=== PATIENT | male | born 1975 | race Caucasian/White ===

== ENCOUNTER 2016-05-08 05:35 | Emergency (ER) | payer BC ==
[~2016-05-08] VITALS: Ht 180.3 cm; Wt 123.4 kg
[2016-05-08 05:35] VITALS: BP 204/104
--- NOTE | 2016-05-08 05:42 | NUR ---
PT TAKEN TO BED 1
[2016-05-08] MEDS ORDERED: NEXIUM20 MG PO (05:48)
--- NOTE | 2016-05-08 05:49 | NUR ---
Dr. Richey evaluating patient at bedside.
--- NOTE | 2016-05-08 05:52 | NUR ---
40Y/M PATIENT PRESENTS TO ED WITH C/O CHEST PAIN X 10 HRS . PT STATES CHEST PAIN STARTED AT 1900 AFTER EATING DINNER, NO RADIATION, FEELING TIGHTNESS. DENIES N/V/D; SKIN IS PINK/WARM/DRY; AAOX4 WITH EVEN AND STEADY GAIT; LUNGS CLEAR BL; HR EVEN AND REGULAR; PT DENIES ANY FEVER, SOB, OR COUGH AT THIS TIME; PATIENT STATES PAIN OF 7/10 AT THIS TIME; VSS; PATIENT POSITIONED FOR COMFORT; HOB ELEVATED; BEDRAILS UP X2; BED DOWN. ER MD MADE AWARE OF PT STATUS.
[2016-05-08] MEDS ORDERED: ALUMINUM HYD/MAG/SIMETHICONE 30 ML, BELLADONNA/PHENOBARBITAL 10 ML, LIDOCAINE VISCOUS 2... PO ONE (05:55)
--- NOTE | 2016-05-08 06:08 | NUR ---
PHLEB AT BEDSIDE FOR LAB DRAWS
--- NOTE | 2016-05-08 07:02 | NUR ---
Patient discharged with v/s stable. Written and verbal after care instructions given and explained. Patient alert, oriented and verbalized understanding of instructions. Ambulatory with steady gait. All questions addressed prior to discharge. ID band removed. Patient advised to follow up with PMD. Rx of MYLANTA 200 [id number], OMEPRAZOLE 20 MG given. Patient educated on indication of medication including possible reaction and side effects. Opportunity to ask questions provided and answered.
[2016-05-08 07:07] VITALS: BP 144/91
== END 2016-05-08 07:02 | disposition home or self-care (01) ==
LOC: MED 05:35
DX: R07.89 Other chest pain (principal)
CPT/HCPCS: 36415; 71010; 80053; 83690; 83880; 84484; 85025; 93005; 99285; Q0092